=== PATIENT | male | born 1965 | race African-American/Black ===

== ENCOUNTER 2016-10-29 11:17 | Emergency (ER) | payer BC ==
[~2016-10-29] VITALS: Ht 177.8 cm; Wt 148.0 kg
[~2016-10-29 11:17] MED LIST: BACLOFEN10 MG PO; FLEXERIL10 MG PO; LISINOPRIL20 MG PO; LORTAB 5-325 M1 EACH PO; NAPROSYN500 MG PO; PERCOCET 5/31 TABLET PO; ZITHROMAX250 MG PO
[2016-10-29] MEDS ORDERED: NAPROSYN500 MG PO (12:29)
[2016-10-29 12:39] VITALS: BP 163/79
== END 2016-10-29 12:54 | disposition home or self-care (01) ==
LOC: EME 11:17
DX: S83.92XA Sprain of unspecified site of left knee, initial encounter (principal); X50.1XXA Overexertion from prolonged static or awkward postures, initial encounter; Y99.0 Civilian activity done for income or pay; E66.01 Morbid (severe) obesity due to excess calories
CPT/HCPCS: 73564; 99281; 99284

== ENCOUNTER 2016-12-11 23:09 | Emergency (ER) | payer BC ==
[~2016-12-11] VITALS: Ht 177.8 cm; Wt 147.3 kg
[2016-12-11 23:49] VITALS: BP 161/87
== END 2016-12-11 23:49 | disposition home or self-care (01) ==
LOC: EME 23:09 → EXP 23:09
DX: S99.921A Unspecified injury of right foot, initial encounter (principal); W22.8XXA Striking against or struck by other objects, initial encounter
CPT/HCPCS: 99281; 99283